=== PATIENT | male | born 1945 | race Caucasian/White ===

== ENCOUNTER 2023-04-03 19:11 | Emergency (ER) | payer MEDICARE ==
[2023-04-03 19:19] VITALS: BP 140/70; O2SAT 99
[2023-04-03] MEDS ORDERED: DEXAMETHASONE 10 MG/ML VIAL PO STA (19:26)
[2023-04-03] MEDS ORDERED: CHERRY SYRUP 10 ML UDC PO ONE (19:26)
--- NOTE | 2023-04-03 19:27 | ED Physician Documentation ---
PD HPI HEENT - Stated complaint Stated Complaint: SORE THROAT - Chief complaint Chief Complaint: Heent - History obtained from History obtained from: Patient (3 days of sore throat with mild runny nose. No fevers. He took a home COVID test just [employer] that was negative.) PD PAST MEDICAL HISTORY - Past Medical History Cardiovascular: Hypertension, High cholesterol : Renal insuffiency, Kidney stones Musculoskeletal: Rheumatoid arthritis - Past Surgical History Past Surgical History: Yes - Present Medications Home Medications: Ambulatory Orders Medication Instructions Recorded Confirmed Aspirin 81 mg PO DAILY 01/16/13 09/11/13 Hydroxychloroquine [Plaquenil] 400 mg PO DAILY 01/16/13 09/11/13 Omeprazole [PriLOSEC] 20 mg PO DAILY 01/16/13 09/11/13 Simvastatin [Zocor] 40 mg PO QPM 01/16/13 09/11/13 Tamsulosin [Flomax] 0.4 mg PO ONCE 01/16/13 09/11/13 hydroCHLOROthiazide 12.5 mg PO DAILY 01/16/13 09/11/13 [Hydrochlorothiazide] - Allergies Allergies/Adverse Reactions: Allergies Allergy/AdvReac Type Severity Reaction Status Date / Time codeine [Codeine] Allergy Mild Nausea Verified 04/03/23 19:15 - Social History Does the pt smoke?: No Smoking Status: Never smoker Does the pt drink ETOH?: Yes Does the pt have substance abuse?: No PD ED PE NORMAL - Vitals Vital signs reviewed: Yes - General General: Alert and oriented X 3, No acute distress - HEENT HEENT: PERRL, EOMI - Neck Neck: No adenopathy, Other (Very mildly red tonsillar pillars without exudates or swelling. Normal phonation. Normal TMs.) - Neuro Neuro: Alert and oriented X 3, Normal speech Results - Vitals Vitals: Vital Signs - 24 hr 04/03/23 19:15 Temperature 37.1 C Heart Rate 69 Respiratory 16 Rate Blood Pressure 140/70 H O2 Saturation 99 Oxygen O2 Source Room air - Labs Labs: Laboratory Tests 04/03/23 19:18 Group A Strep Rapid Negative Departure - Departure Disposition: Home, Self Care Clinical Impression: Viral pharyngitis Condition: Good Record reviewed to determine appropriate education?: Yes Instructions: ED Pharyngitis Viral Report Pending Comments: Your rapid strep test was negative, we are going to perform a throat culture and we will call you with any positive finding that would require antibiotics. In the meantime you can take Tylenol, throat lozenges or Chloraseptic for the sore throat. Also we gave you a long-acting dose of steroids which should help with the inflammation and pain as well. Return for new or worsening symptoms. Forms: PCP List
[2023-04-03 19:30] LABS: RAPID STREP SCREEN Negative (Negative)
== END 2023-04-03 19:48 | disposition home or self-care (01) ==
LOC: ED 19:11
DX: J02.8 Acute pharyngitis due to other specified organisms (principal)
CPT/HCPCS: 87070; 87430; 99283; A9270